=== PATIENT | male | born 1965 | race Caucasian/White ===

== ENCOUNTER 2025-05-25 08:26 | Outpatient (CLI) | payer BC, SELFPAY | END 2025-05-25 08:27 | disposition home or self-care (01) | LOC: NFLDREF 05-31 07:50 | PROVIDERS: PCP Family Medicine; Referring Provider Family Medicine; Visit Provider Family Medicine | DX: Z00.00 Encounter for general adult medical examination without abnormal findings (principal); Z13.220 Encounter for screening for lipoid disorders; Z13.1 Encounter for screening for diabetes mellitus; Z12.5 Encounter for screening for malignant neoplasm of prostate; M54.30 Sciatica, unspecified side; E11.9 Type 2 diabetes mellitus without complications; I10 Essential (primary) hypertension; E78.5 Hyperlipidemia, unspecified; Z12.11 Encounter for screening for malignant neoplasm of colon; M54.32 Sciatica, left side | CPT/HCPCS: 80053; 80061; G0103 ==

== ENCOUNTER 2025-06-06 11:58 | Outpatient (CLI) | payer BC, SELFPAY ==
--- NOTE | 2025-06-06 12:15 | CRLHL7_ITS ---
For Patients: As a result of the Century Cures Act, medical imaging exams and procedure reports are released immediately into your electronic medical record. You may view this report before your referring provider. If you have questions, please contact your health care provider. INDICATION: Sciatica, left side, LLE pain COMPARISON: None. TECHNIQUE: A compression venous ultrasound exam was performed of the left lower extremity using villegas-scale imaging, color Doppler and spectral Doppler analysis. FINDINGS: Sonographic imaging of the left lower extremity demonstrates normal compressibility and color Doppler venous blood flow within the common femoral vein, deep femoral vein, and the proximal greater saphenous vein. Within the thigh, the femoral vein is patent and compressible. At a lower level, the popliteal and posterior tibial veins also show normal compressibility and color Doppler venous blood flow. Limited imaging of the contralateral groin demonstrates a normal spectral waveform and color Doppler venous blood flow within the right common femoral vein. IMPRESSION: Normal venous ultrasound exam. No evidence of deep vein thrombosis within the left lower extremity. Dictated by Bogdan Correia MD @ 06/06/2025 12:55:49 PM (Electronically Signed)
== END 2025-06-06 11:59 | disposition home or self-care (01) ==
PROVIDERS: PCP Family Medicine; Visit Provider Family Medicine
DX: M54.32 Sciatica, left side (principal); M79.605 Pain in left leg
CPT/HCPCS: 93971

== ENCOUNTER 2025-06-08 11:59 | Outpatient (CLI) | payer BC, SELFPAY ==
--- NOTE | 2025-06-08 13:24 | P.ANES_ITS ---
Anesthesia Charges Start Date/Time Anesthesia Start Date: 06/08/25 Anesthesia Start Time: 12:48 Stop Date/Time Anesthesia Stop Date: 06/08/25 Anesthesia Stop Time: 13:25 Coding CPT Codes CPT Codes: AMY LWR INTST NDSC NOS - [id number] ([id number]) P2 - PATIENT W/MILD SYST DISEASE, QK - WEB APPLICATIONS PROGRAMMER 2-4 CNCRNT ANES PROC, QX - [facility]ISTS SVC W/ MD MED DIRECTION
--- NOTE | 2025-06-08 13:24 | W.ANESCHARGE ---
Anesthesia Charges Start Date/Time Anesthesia Start Date: 06/08/25 Anesthesia Start Time: 12:48 Stop Date/Time Anesthesia Stop Date: 06/08/25 Anesthesia Stop Time: 13:25 Coding CPT Codes CPT Codes: AMY LWR INTST NDSC NOS - [id number] ([id number]) P2 - PATIENT W/MILD SYST DISEASE, QK - SEALER OPERATOR 2-4 CNCRNT ANES PROC, QX - GENERATOR WORKER SVC W/ MD MED DIRECTION
--- NOTE | 2025-06-08 13:57 | P.ANES_ITS ---
Anesthesia Charges Start Date/Time Anesthesia Start Date: 06/08/25 Anesthesia Start Time: 12:48 Stop Date/Time Anesthesia Stop Date: 06/08/25 Anesthesia Stop Time: 13:25 Coding CPT Codes CPT Codes: AMY LWR INTST NDSC NOS - [id number] ([id number]) P2 - PATIENT W/MILD SYST DISEASE, QK - ROUTE SALES DELIVERY DRIVER 2-4 CNCRNT ANES PROC, QX - PLANNED GIVING OFFICER SVC W/ MD MED DIRECTION
--- NOTE | 2025-06-08 13:57 | W.ANESCHARGE ---
Anesthesia Charges Start Date/Time Anesthesia Start Date: 06/08/25 Anesthesia Start Time: 12:48 Stop Date/Time Anesthesia Stop Date: 06/08/25 Anesthesia Stop Time: 13:25 Coding CPT Codes CPT Codes: AMY LWR INTST NDSC NOS - [id number] ([id number]) P2 - PATIENT W/MILD SYST DISEASE, QK - PLANER OFFBEARER 2-4 CNCRNT ANES PROC, QX - RESOURCE MANAGER FORESTER SVC W/ MD MED DIRECTION
== END 2025-06-08 12:00 | disposition home or self-care (01) ==
LOC: OP CLINIC 12:00
PROVIDERS: PCP Family Medicine; Visit Provider Surgery
DX: Z12.11 Encounter for screening for malignant neoplasm of colon (principal); Z80.0 Family history of malignant neoplasm of digestive organs; D12.3 Benign neoplasm of transverse colon
CPT/HCPCS: 00811; 00812; 45385; 88305